=== PATIENT | male | born 1985 | race Two or more races ===

== ENCOUNTER 2022-06-14 09:39 | Outpatient (REF) | payer OTHER, SELFPAY ==
[2022-06-14 11:46] LABS: MANUAL DIFF FLAG NO
[2022-06-14 11:50] LABS: Eosinophils Absolute Auto 0.1 X10*3/uL (0.0-0.4); Eosinophils Percent Auto 1.7 % (0-4); Hematocrit 39.2 % (42.0-52.0); Hemoglobin 12.7 g/dl (14.0-18.0); Imm Gran Abs Auto 0.01 X10*3/uL (0.00-0.03); Imm Gran Pct Auto 0.2 % (0.0-0.4); Lymphocytes Absolute Auto 1.4 X10*3/uL (1.2-4.9); Lymphocytes Percent Auto 33.4 % (20-40); Mean Corpuscular HGB Conc 32.4 g/dl (31.0-36.0); Mean Corpuscular Volume 83.2 fL (80.0-98.0); Mean Platelet Volume 10.6 fL (9.4-12.4); Monocytes Absolute Auto 0.4 X10*3/uL (0.1-1.2); Monocytes Percent Auto 9.4 % (2-11); Neutrophils Absolute Auto 2.2 x10*3/uL (2.0-8.3); Neutrophils Percent Auto 54.3 % (45-73); Platelet Count 180 X10*3/uL (160-400); Red Blood Count 4.71 X10*6/uL (4.60-5.80); Red Cell Distribution Width 13.3 % (11.0-16.0); White Blood Count 4.1 X10*3/uL (4.8-10.8)
[2022-06-14 12:10] LABS: Appearance Urine CLEAR; Color Urine YELLOW; Glucose Urine UA NEG (NEG); Leukocyte Esterase Urine NEG (NEG); Nitrite Urine NEG (NEG); Urine Blood NEG (NEG); Urine Ketones NEG (NEG); Urine Protein NEG (NEG-TRACE)
[2022-06-14 12:16] LABS: Alanine Aminotransferase 15 U/L (0-40); Albumin Level 4.3 g/dL (3.5-5.0); Alkaline Phosphatase 55 U/L (39-117); Anion Gap 10 (12-20); Aspartate Amino Transferase 14 U/L (5-37); Bilirubin Total 0.5 mg/dL (0.0-1.0); Blood Urea Nitrogen 17 mg/dL (9-16); Calcium 8.9 mg/dL (8.4-10.2); Carbon Dioxide 27 mmol/L (22-29); Chloride 104 mmol/L (96-108); Cholesterol 192 mg/dL; Estimated Glomerular Filt Rate > 60; Glucose Fasting 89 mg/dL (60-99); HDL Cholesterol 53 mg/dL; LDL Cholesterol Calculated 131 mg/dl; Potassium 4.1 mmol/L (3.3-5.1); Sodium 137 mmol/L (135-145); Total Protein 6.9 g/dL (6.5-8.0); Triglycerides 41 mg/dL
[2022-06-14 12:22] LABS: TSH reflex Free T4 1.33 uIU/mL (0.32-4.0)
== END 2022-06-14 09:40 | disposition home or self-care (01) ==
LOC: HO.HMGCLDS 09:39
PROVIDERS: PCP Nurse Practitioner Family; Visit Provider Nurse Practitioner Family
DX: Z00.00 Encounter for general adult medical examination without abnormal findings (principal); Z13.220 Encounter for screening for lipoid disorders; Z13.29 Encounter for screening for other suspected endocrine disorder
CPT/HCPCS: 36415; 80053; 80061; 81003; 84443; 85025

== ENCOUNTER 2022-07-25 08:50 | Outpatient (REF) | payer OTHER, SELFPAY ==
[2022-07-25 12:20] LABS: Iron 98 mcg/dL (45-160); Percent Iron Saturation 32 % (15-50); Total Iron Binding Capacity 311 mcg/dL (228-428); Unsaturated Iron Binding 213 ug/dL
[2022-07-25 12:24] LABS: Folate 13.6 ng/mL (> or = 4.0); Vitamin B12 304 pg/mL (200-900)
== END 2022-07-25 08:51 | disposition home or self-care (01) ==
LOC: HO.HMGCLDS 08:50
PROVIDERS: PCP Nurse Practitioner Family; Visit Provider Internal Medicine
DX: D64.9 Anemia, unspecified (principal)
CPT/HCPCS: 36415; 82607; 82746; 83540

== ENCOUNTER 2022-08-15 09:50 | Outpatient (REF) | payer OTHER, SELFPAY ==
--- NOTE | ~2022-08-15 | XR_ITS ---
EXAMINATION: XR CERVICAL SPINE CLINICAL INFORMATION: Cervicalgia COMPARISON: None TECHNIQUE: 3 views of the cervical spine were obtained. FINDINGS: There are no prevertebral soft tissue or bony abnormalities demonstrated. No compression fractures or subluxations are identified. Alignment is maintained at the atlanto-axial articulation. The disc spaces are preserved. No endplate changes are seen. The prevertebral soft tissues are normal. The foramina are patent. XR/XR cervical spine 2V IMPRESSION: Unremarkable examination.
== END 2022-08-15 09:51 | disposition home or self-care (01) ==
LOC: HO.HMGCX 09:50
PROVIDERS: PCP Nurse Practitioner Family; Visit Provider Nurse Practitioner Family
DX: M54.2 Cervicalgia (principal)
CPT/HCPCS: 72040

== ENCOUNTER 2022-11-21 10:00 | Outpatient (RCR) | payer OTHER, SELFPAY ==
--- NOTE | 2022-10-09 14:38 | MHC.PT.EP ---
[facility] [place] [facility] [place] Office [place] Office [address] Jeancarlos Lundy [address] [phone] F: [phone] F: [phone] F: [phone] F: [phone] Physical Therapy Plan of Care Date of Evaluation: Date of Surgery: N/A Diagnosis: cervicalgia Assessment: Pt is a 37yo M who presents to PT with neck pain radiating into L UE since ~. He reports onset of pain started when he began reading as a hobby. Pt presents to PT with current impairments in pain, radicular symptoms, decreased cervical ROM, decreased strength, soft tissue restrictions, and impaired posture. His symptoms centralize with his neck in a neutral position, and he peripheralizes with his neck flexed. He is limited functionally with looking down, looking up, reading, driving and sleeping. He is an excellent candidate for skilled PT in order to address current impairments to facilitate return to PLOF. He is recommended to be seen 2x/week for 4 weeks and will be reassessed at that time. Frequency and Duration: The patient will be seen 2x/week for 4 weeks Short Term Goals: Pt will be I with HEP to promote self management of symptoms Pt will demonstrate improvements in postural awareness throughout the day Pt will have centralization of symptoms Operation Agent Goals: Pt will demonstrate full, pain-free ROM throughout all planes of cervical spine Pt will tolerate sitting and reading > 1 hour with minimal to no symptoms Pt will demonstrate improvements in functional as evidenced by statistically significant improvement in Neck Pain Disability Index Questionnaire Treatment Plan: Modalities to reduce pain, spasms and effusion. Manual therapy to restore motion and function. Therapeutic exercise to improve strength and flexibility. Neuromuscular re-education for posture and balance. Therapeutic activities to return to functional activities of daily living. Electronically signed by: Laurie Felton, PT, DPT Please sign and return to therapist. Thank you for your referral.
--- NOTE | 2022-11-26 14:18 | MHC.PT.DC ---
[facility] [place] Office [place] Office [place] Office [address] Jeancarlos Lundy [address] [phone] F: [phone] F: [phone] F: [phone] F: [phone] Physical Therapy Discharge Report Diagnosis: cervicalgia Date of Surgery: N/A Date of Evaluation: 10/09/22 Date of Discharge: 11/26/22 Treatments to Date: 10 Cancellations to Date: No Shows to Date: Discharge Status: Achieved Goals Improved Function Independent with HEP Discharge Summary: Pt was seen for PT from 10/09/22-11/21/22. His last attended appointment was 11/21/22. He has made good progress since SOC. He demonstrates improvements in postural awareness and his body mechanics. He consistently has minimal to no pain. Pt is I with HEP. Pt is being D/C from skilled PT at this time. Electronically signed by: Laurie Felton, PT, DPT Please sign and return to therapist. Thank you for your referral.
== END 2022-11-26 14:18 | disposition home or self-care (01) ==
LOC: HO.PT 10:00
PROVIDERS: PCP Nurse Practitioner Family; Visit Provider Nurse Practitioner Family
DX: M54.2 Cervicalgia (principal)
CPT/HCPCS: 97110; 97140; 97162

== ENCOUNTER 2022-12-19 09:27 | Outpatient (REF) | payer OTHER, SELFPAY | END 2022-12-19 09:28 | disposition home or self-care (01) | LOC: HO.HMGCLDS 09:27 | PROVIDERS: PCP Nurse Practitioner Family; Visit Provider Nurse Practitioner Family | DX: Z01.83 Encounter for blood typing (principal) | CPT/HCPCS: 86900; 86901 ==

== ENCOUNTER 2023-02-14 08:03 | Outpatient (REF) | payer OTHER, SELFPAY ==
--- NOTE | ~2023-02-14 | MR_ITS ---
EXAMINATION: MR CERVICAL SPINE WITHOUT CONTRAST CLINICAL INFORMATION: Radicular symptoms. The patient states left-sided symptoms. COMPARISON: Plain films of the cervical spine 08/15/2022. TECHNIQUE: MRI of the cervical spine was obtained using routine sequences without contrast. FINDINGS: VERTEBRAL BODIES AND PARASPINAL SOFT TISSUES: There is a mild levoscoliosis. There is a slight retrolisthesis of C4 on C5. There is narrowing of intervertebral disc height at C4-C5, C5-C6 and C6-C7. Vertebral body heights are maintained and no fractures are demonstrated. Marrow signal is homogenous. There is an impacted left mandibular 3rd molar tooth. The right mandible is not included on the wglia-ny-noab, but an impacted 3rd molar on the right was demonstrated on the on the prior study. There are mildly prominent cervical lymph nodes bilaterally which are likely reactive. CERVICOMEDULLARY JUNCTION AND VISUALIZED POSTERIOR FOSSA: The craniocervical and posterior fossa structures are normal. Accounting for artifact, spinal cord signal appears normal. SPINAL LEVELS: C2-C3: The facet joints appear normal bilaterally. Posterior disc contour is normal. There is no spinal cord compression or central stenosis. The neural foramina are patent bilaterally. C3-C4: The facet joints appear normal. Posterior disc contour is normal with no cord compression or central stenosis. There are uncovertebral osteophytes and there is mild right foraminal narrowing. C4-C5: The facet joints appear normal. There is a broad-based posterior soft disc protrusion with mild distortion of the ventral thecal sac, without cord compression or central stenosis. There are uncovertebral osteophytes and there is moderate right foraminal narrowing. C5-C6: The facet joints appear normal. There is a posterior disc protrusion which is eccentrically slightly more prominent on the left, but there is no cord compression or central stenosis. There are uncovertebral osteophytes and there is mild left foraminal narrowing. C6-C7: The facet joints appear normal bilaterally. There is a large extruded disc component on the left which has a craniocaudal dimension of 0.8 cm, which significantly compresses the left aspect of the thecal sac and flattens the ventral aspect of the spinal cord on the left. There is posterior displacement of the traversing left C8 nerve root. There is effacement of CSF around the cord, and there is mild central stenosis, most prominent on the left. The protrusion/extrusion causes mild left foraminal narrowing. The right neural foramen is patent. C7-T1: The facet joints appear normal bilaterally. Posterior disc contour is normal. There is no spinal cord compression or central stenosis. The neural foramina are patent bilaterally. MR/MR cervical spine wo con IMPRESSION: 1. There is a large extruded disc component on the left at C6-C7 with compression of the left aspect of the thecal sac and flattening of the ventral aspect of the spinal cord on the left. There is posterior displacement of the traversing left C8 nerve root and there is mild central stenosis. There is mild left foraminal narrowing. 2. At C4-C5 there is a broad-based posterior soft disc protrusion without cord compression or central stenosis. There is moderate right foraminal narrowing. 3. At C5-C6 there is a posterior disc protrusion without cord compression or central stenosis. There is mild left foraminal narrowing.
== END 2023-02-14 08:04 | disposition home or self-care (01) ==
LOC: HO.MRI 08:03
PROVIDERS: PCP Nurse Practitioner Family; Visit Provider Nurse Practitioner Family
DX: M54.2 Cervicalgia (principal)
CPT/HCPCS: 72141

== ENCOUNTER → 2023-03-06 09:26 | Outpatient (BNVA) | payer OTHER, SELFPAY | PROVIDERS: PCP Nurse Practitioner Family; Visit Provider Physician Assistant | DX: Z13.89 Encounter for screening for other disorder (principal) ==

== ENCOUNTER 2023-08-21 08:39 | Outpatient (AMB) | payer OTHER, SELFPAY ==
[2023-08-21 08:52] VITALS: BP 122/80; PULSE 66; O2SAT 100; BMI 19.3
--- NOTE | 2023-08-21 08:52 | MHC.PC.OV ---
Vital Signs 08/21/23 08:52 Height 5 ft 1 in Weight 102 lb 6 oz BMI 19.3 BP 122/80 Blood Pressure Location Rt brachial Position Sitting Pulse 66 Pulse Source Pulse Oximeter Pulse Oximetry (%) 100 Oxygen Delivery Method Room Air Intake Visit Reasons: PE Allergies No Known Allergies Allergy (Verified 08/21/23 09:02) Medication List - Last Reconciled 08/21/23 by CHRISTINE Larose No Known Home Meds Tobacco use date assessed: 08/21/23 Dental Screening Dental Screen Date: 08/21/23 Did you have a dental visit in the last 12 months?: No Did you have a dental problem in the last 6 months where you did not have access to dental care?: No Was dental information given to patient?: Patient has dentist HPI PE HPI Details pt is here for a PE. PFSH Family History Paternal Uncle No problems noted. 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 Piotr Gandhi, Faviola Newman, Yann Salvador and colleagues, with an educational gregory from [employer] Review of Systems Const Denies chills and Denies fever(s) Eyes Denies blurry vision ENT Denies vertigo, Denies dizziness and Denies sore throat Card Denies chest pain at rest, Denies chest pain with activity, Denies diaphoresis, Denies dyspnea and Denies dyspnea on exertion Resp Denies cough, Denies dyspnea, Denies dyspnea on exertion and Denies wheezing GI Denies abdominal pain, Denies melena, Denies hematochezia, Denies constipation, Denies diarrhea and Denies loose stools Denies hematuria Musc Denies numbness and Denies tingling Skin/Breast Denies lesions Neuro Denies vertigo, Denies dizziness, Denies numbness and Denies tingling Psych Denies anxiety, Denies depression, Denies homicidal ideation, Denies suicidal ideation and Denies other (substance abuse) Aller/Immun Denies wheezing Physical exam (Primary Care) Vital Signs: Last Vital Signs Pulse 66 08/21/23 08:52 BP 122/80 08/21/23 08:52 Pulse Ox 100 08/21/23 08:52 Oxygen Delivery Method Room Air 08/21/23 08:52 BMI result Body Mass Index 19.3 Tobacco/Smoking Status: Tobacco use Status Tobacco use date assessed 08/21/23 08/21/23 08:56 Patient Tobacco Use Status Never used Tobacco 08/21/23 08:56 e-Cigarette/Vaping Use Never Used 08/21/23 08:56 Thrive Assessment: Date of Thrive Assessment Date Thrive assessed 04/11/22 08/21/23 08:56 Const General: cooperative Nutritional Appearance: well nourished Orientation/consciousness: patient oriented x3 HENMT Head: Yes normal to inspection, Yes normocephalic and Yes atraumatic Ears: TM normal on the right and TM normal on the left Eyes General: appearance normal, both eyes and all related structures Alignment and Position: alignment normal and position normal Neck Neck: Yes normal visual inspection and Yes no lymphadenopathy Resp Effort & Inspection: normal respiratory effort Auscultation: clear to auscultation bilaterally Cardio Rate: regular rate Rhythm: regular rhythm Heart sounds: S1 normal heart sound present, S2 normal heart sound present and no murmurs GI Palpation (GI): Soft to palpation and nontender Auscultation: normal bowel sounds Male General Exam: Yes normal external exam Penis: normal penis Scrotum: scrotum normal, testes descended bilaterally and no inguinal hernias Testes: no testicular mass Skin Rashes: no rashes Neuro General: patient oriented x3, moves all extremities, no focal motor deficits and deep tendon reflexes 2+ bilaterally Romberg Test: Negative Extrem Right lower extremity: no edema Left lower extremity: no edema Psych Affect: normal affect Attitude: cooperative Thought process: Normal thought process present Assessment and Plan Assessment & Plan (1) Physical exam: Code(s): Z00.00 - Encounter for general adult medical examination without abnormal findings Orders: Orders Complete Blood Count Auto Diff Today Z00.00 - Encounter for general adult medical examination without abnormal findings Comprehensive [place]. Panel Fast Today Z00.00 - Encounter for general adult medical examination without abnormal findings Lipid Panel Today Z00.00 - Encounter for general adult medical examination without abnormal findings TSH reflex Free T4 Today Z00.00 - Encounter for general adult medical examination without abnormal findings UA CC w/rflx Micro + Cult Today Z00.00 - Encounter for general adult medical examination without abnormal findings Coding Level of Care Code Est Pt Prev Care 40-64y(74015) Diagnoses Physical exam Z00.00
== END 2023-08-21 09:10 | disposition home or self-care (01) ==
PROVIDERS: Visit Provider Nurse Practitioner Family
DX: Z00.00 Encounter for general adult medical examination without abnormal findings (principal)
CPT/HCPCS: 99396

== ENCOUNTER 2023-08-27 08:45 | Outpatient (REF) | payer OTHER, SELFPAY ==
[2023-08-27 11:21] LABS: MANUAL DIFF FLAG NO
[2023-08-27 11:26] LABS: Appearance Urine Clear; Color Urine Yellow; Glucose Urine UA Negative (Negative); Leukocyte Esterase Urine Negative (Negative); Nitrite Urine Negative (Negative); PH 5.5 (5.0-9.0); Specific Gravity - Urine 1.025 (1.005-1.025); Urine Blood Negative (Negative); Urine Ketones Negative (Negative); Urine Protein Negative (Neg-Trace)
[2023-08-27 11:37] LABS: Basophils Absolute Auto 0.1 X10*3/uL (0.0-0.2); Basophils Percent Auto 1.2 % (0-2); Eosinophils Absolute Auto 0.2 X10*3/uL (0.0-0.4); Eosinophils Percent Auto 4.3 % (0-4); Hematocrit 38.8 % (42.0-52.0); Hemoglobin 12.4 g/dl (14.0-18.0); Imm Gran Abs Auto 0.01 X10*3/uL (0.00-0.03); Imm Gran Pct Auto 0.2 % (0.0-0.4); Lymphocytes Absolute Auto 1.6 X10*3/uL (1.2-4.9); Lymphocytes Percent Auto 38.3 % (20-40); Mean Corpuscular Volume 84.3 fL (80.0-98.0); Mean Platelet Volume 10.7 fL (9.4-12.4); Monocytes Absolute Auto 0.4 X10*3/uL (0.1-1.2); Monocytes Percent Auto 10.3 % (2-11); Neutrophils Absolute Auto 1.9 x10*3/uL (2.0-8.3); Neutrophils Percent Auto 45.7 % (45-73); Platelet Count 183 X10*3/uL (160-400); Red Cell Distribution Width 13.3 % (11.0-16.0); White Blood Count 4.2 X10*3/uL (4.8-10.8)
[2023-08-27 11:57] LABS: Alanine Aminotransferase 11 U/L (0-40); Albumin Level 4.2 g/dL (3.5-5.0); Alkaline Phosphatase 49 U/L (39-117); Anion Gap 11 (12-20); Aspartate Amino Transferase 12 U/L (5-37); Bilirubin Total 0.5 mg/dL (0.0-1.0); Blood Urea Nitrogen 15 mg/dL (9-16); Calcium 9.1 mg/dL (8.4-10.2); Carbon Dioxide 28 mmol/L (22-29); Chloride 106 mmol/L (96-108); Cholesterol 173 mg/dL (<200); Estimated Glomerular Filt Rate > 60; Glucose Fasting 91 mg/dL (60-99); HDL Cholesterol 56 mg/dL (>40); LDL Cholesterol Calculated 108 mg/dL (<100); Potassium 4.3 mmol/L (3.3-5.1); Sodium 141 mmol/L (135-145); Total Protein 6.8 g/dL (6.5-8.0); Triglycerides 46 mg/dL (<150)
[2023-08-27 12:14] LABS: TSH reflex Free T4 1.18 uIU/mL (0.32-4.0)
== END 2023-08-27 08:46 | disposition home or self-care (01) ==
LOC: HO.HMGCLDS 08:45
PROVIDERS: PCP Nurse Practitioner Family; Visit Provider Nurse Practitioner Family
DX: Z00.00 Encounter for general adult medical examination without abnormal findings (principal); D64.9 Anemia, unspecified; Z13.220 Encounter for screening for lipoid disorders; Z13.29 Encounter for screening for other suspected endocrine disorder
CPT/HCPCS: 36415; 80053; 80061; 81003; 84443; 85025

== ENCOUNTER 2023-10-22 12:20 | Outpatient (REF) | payer OTHER, SELFPAY ==
[2023-10-22 13:42] LABS: Immature Retic Fraction 8.9 % (2.3-13.4); Retic HGB Equivalent 31.7 pg (30.0-35.0); Reticulocytes Absolute 0.053 X10*6/uL (0.026-0.095)
[2023-10-22 14:11] LABS: Iron 71 mcg/dL (45-160); Percent Iron Saturation 29 % (15-50); Total Iron Binding Capacity 242 mcg/dL (228-428); Unsaturated Iron Binding 171 ug/dL
[2023-10-22 14:15] LABS: Ferritin 226 ng/mL (20-250)
[2023-10-22 14:41] LABS: Folate 10.3 ng/mL (> or = 4.0); Vitamin B12 541 pg/mL (200-900)
[2023-10-23 14:59] LABS: Hemoglobin 14.1 g/dL (13.2-17.1); MCH 26.7 pg (27.0-33.0); MCV 81.4 fL (80.0-100.0); RBC 5.28 Million/uL (4.20-5.80); RDW 12.9 % (11.0-15.0)
== END 2023-10-22 12:21 | disposition home or self-care (01) ==
LOC: HO.HMGCLDS 12:20
PROVIDERS: PCP Nurse Practitioner Family; Visit Provider Nurse Practitioner Family
DX: D64.9 Anemia, unspecified (principal); D72.819 Decreased white blood cell count, unspecified
CPT/HCPCS: 36415; 82607; 82728; 82746; 83020; 83540; 85014; 85018; 85041; 85045

== ENCOUNTER 2024-01-08 11:31 | Outpatient (REF) | payer OTHER, SELFPAY ==
[2024-01-08 13:02] LABS: MANUAL DIFF FLAG NO
[2024-01-08 13:24] LABS: Basophils Percent Auto 0.6 % (0-2); Eosinophils Percent Auto 0.8 % (0-4); Hematocrit 41.3 % (42.0-52.0); Hemoglobin 13.2 g/dl (14.0-18.0); Lymphocytes Absolute Auto 1.3 X10*3/uL (1.2-4.9); Lymphocytes Percent Auto 27.1 % (20-40); Mean Corpuscular Hemoglobin 26.7 pg (27.0-33.0); Mean Corpuscular Volume 83.4 fL (80.0-98.0); Mean Platelet Volume 10.7 fL (9.4-12.4); Monocytes Absolute Auto 0.5 X10*3/uL (0.1-1.2); Neutrophils Absolute Auto 2.9 x10*3/uL (2.0-8.3); Neutrophils Percent Auto 60.5 % (45-73); Platelet Count 192 X10*3/uL (160-400); Red Blood Count 4.95 X10*6/uL (4.60-5.80); Red Cell Distribution Width 13.2 % (11.0-16.0); White Blood Count 4.7 X10*3/uL (4.8-10.8)
== END 2024-01-08 11:32 | disposition home or self-care (01) ==
LOC: HO.HMGCLDS 11:31
PROVIDERS: PCP Nurse Practitioner Family; Visit Provider Nurse Practitioner Family
DX: D72.819 Decreased white blood cell count, unspecified (principal)
CPT/HCPCS: 36415; 85025

== ENCOUNTER 2024-01-12 10:11 | Outpatient (AMB) | payer OTHER, SELFPAY ==
--- NOTE | 2024-01-12 12:37 | AM.OFFWIN_ITS ---
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 He felt a sharp pull or pain in his mid upper back region. No direct trauma. He was able to go on about his day and continue working however when he woke up the next day he was much more sore and complains of pain from the mid back that radiates to the left arm. Occasional pins and needles sensation in his hand. No weakness of his hand. He was seen in an urgent care and prescribed Flexeril though only given 3 tablets and recommended to use Advil which he has been doing. He has had minimal relief with the symptoms. 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 [facility] Family History Paternal Uncle No problems noted. 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[employer] Current occupational exposures/hazards: Yes Cognitive needs: No Hearing needs: No Vision needs: No Review of Systems Eyes Reports no additional complaints ENT Denies dysphagia Card Reports no additional complaints, Denies dyspnea and Denies dyspnea on exertion Resp Denies cough, Denies hemoptysis, Denies dyspnea and Denies dyspnea on exertion GI Denies dysphagia Denies difficulty urinating and Denies urinary incontinence Musc Reports back pain and Denies muscle weakness Physical Exam Vital Signs: Last Vital Signs Pulse 70 01/12/24 12:39 BP 118/78 01/12/24 12:39 Pulse Ox 98 01/12/24 12:39 Oxygen Delivery Method Room Air 01/12/24 12:39 BMI result Body Mass Index 19.3 Const General: healthy appearing and no acute distress Orientation/consciousness: patient oriented x3 Eyes General: appearance normal, both eyes and all related structures Pupils: Equal, round and reactive pupils present Resp Effort & Inspection: normal respiratory effort and able to speak in complete sentences Back/Spine/Pelvis Other: Tender palpation in the mid upper thoracic region around the level of the middle of the scapula on the left and left paraspinal musculature approximately T5 region. No soft tissue swelling no bony deformity no midline tenderness. Full range of motion of the left upper extremity. No tenderness along the scapula. Thoracic/Lumbar Spine: thoracic and lumbar spine normal to inspection Neuro General: patient oriented x3 and Normal light touch and pain sensation Cranial nerves: Yes Equal, round and reactive pupils present Assessment & Plan Assessment & Plan (1) Muscle spasm: Code(s): M62.838 - Other muscle spasm Plan Symptoms consistent with muscle spasm/strain. Will recommend continued muscle relaxer +NSAIDs. Recommend follow-up in 1 week. Discussed with patient no indication for radiographs. Work note given Medications: New cyclobenzaprine 10 mg PO TID PRN 12 tabs 0RF muscle spasm Coding Level of Care Code Est Pt Level 3 (58650) Diagnoses Muscle spasm M62.838
[2024-01-12 12:39] VITALS: BP 118/78; PULSE 70; O2SAT 98; BMI 19.3
== END 2024-01-12 14:16 | disposition home or self-care (01) ==
PROVIDERS: PCP Nurse Practitioner Family; Visit Provider Emergency Medicine
DX: M62.838 Other muscle spasm (principal)
CPT/HCPCS: 99213

== ENCOUNTER 2024-01-13 08:02 | Outpatient (AMB) | payer OTHER, SELFPAY ==
[2024-01-13 08:07] VITALS: BP 120/72; PULSE 102; O2SAT 98; BMI 19.3
--- NOTE | 2024-01-13 08:11 | MHC.PC.OV ---
Vital Signs 01/13/24 08:07 Height 5 ft 1 in Weight 102 lb BMI 19.3 BP 120/72 Blood Pressure Location Lt brachial Position Sitting Pulse 102 H Pulse Source Pulse Oximeter Pulse Oximetry (%) 98 Intake Visit Reasons: WC Back Injury Intake Note: pt is here back injury, was seen in walk in yesterday and possibly need referral or surgery due to back pain Allergies No Known Allergies Allergy (Verified 01/13/24 08:34) Medication List - Last Reconciled 01/13/24 by CHRISTINE Larose cyclobenzaprine 10 mg PO TID PRN prednisone 50 mg PO DAILY 6 days Tobacco use date assessed: 01/13/24 Dental Screening Dental Screen Date: 01/13/24 Did you have a dental visit in the last 12 months?: Yes Did you have a dental problem in the last 6 months where you did not have access to dental care?: No Was dental information given to patient?: Patient has dentist HPI WC Back Injury HPI Details Pt was seen in the walk-in on 01/12 c/o mid thoracic back pain. 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 Pt's symptoms were consistent with muscle spasm/strain. He was given cyclobenzaprine. Pt reports ongoing pain that has been radiating to his cervical neck (site of ongoing pain). He has seen neurosurgery in the past, hx of C6-C7 herniated disc. Pt was a good candidate for disc replacement. Pt reports pain with weakness/numbness to his LUE and left scapula/trap with turning head side to side, chin raises, and chin tucks. Will send prednisone. Will have pt call the spine center to be seen again for possible surgical intervention, seeing his symptoms are much worse. Denies fever, chills, and dizziness. [facility] Family History Paternal Uncle No problems noted. Maternal Uncle Substance use disorder Social History Housing: House Patient Tobacco Use Status: Never used Tobacco e-Cigarette/Vaping Use: Never Used Second Hand Smoke Exposure: No service: No Current occupational status: employed Current occupation: [employer] with [employer] Current occupational exposures/hazards: Yes Cognitive needs: No Hearing needs: No Vision needs: No Questionnaire Thrive Questionnaire Date Thrive assessed: 04/11/22 RUBY-7 AMB Questionnaire RUBY-7 Date RUBY - 7 assessed: 04/11/22 Source: Developed by Drs. Piotr Gandhi, Faviola Newman, Yann Salvador and colleagues, with an educational gregory from [employer]. Review of Systems Const Reports as per HPI Physical exam (Primary Care) Vital Signs: Last Vital Signs Pulse 102 H 01/13/24 08:07 BP 120/72 01/13/24 08:07 Pulse Ox 98 01/13/24 08:07 BMI result Body Mass Index 19.3 Tobacco/Smoking Status: Tobacco use Status Tobacco use date assessed 01/13/24 01/13/24 08:13 Patient Tobacco Use Status Never used Tobacco 01/13/24 08:13 e-Cigarette/Vaping Use Never Used 01/13/24 08:13 Thrive Assessment: Date of Thrive Assessment Date Thrive assessed 04/11/22 01/13/24 08:13 Const General: cooperative Orientation/consciousness: patient oriented x3 Resp Effort & Inspection: normal respiratory effort Auscultation: clear to auscultation bilaterally Cardio Rate: regular rate Rhythm: regular rhythm Heart sounds: S1 normal heart sound present and S2 normal heart sound present Back/Spine/Pelvis Other: + spurlings bilat, cervical neck pain with radicular symptoms exacerbated with chin tucks, chin raises, and turning head side to side Neuro General: patient oriented x3 Psych Appearance: grossly normal Mental Status: mental status grossly normal Speech and movement: Normal speech and movement present Affect: normal affect Attitude: cooperative Thought process: Normal thought process present Thought content: Normal thought content present Insight: Good insight present (Psych) Judgement: Good judgement present (Psych) Assessment and Plan Assessment & Plan (1) Cervical disc herniation: Code(s): M50.20 - Other cervical disc displacement, unspecified cervical region (2) Cervical radiculopathy: Code(s): M54.12 - Radiculopathy, cervical region Plan The patient agreed to the use of a medical delivery technician for this encounter. Scribed for CHRISTINE Clayton by aravind Raman scribe, on 01/13/2024 at 08:20 EST. Medications: New prednisone 50 mg PO DAILY 6 tabs 0RF 6 days Coding Level of Care Code Est Pt Level 3 (66579) Diagnoses Cervical disc herniation M50.20 Cervical radiculopathy M54.12
== END 2024-01-13 08:38 | disposition home or self-care (01) ==
PROVIDERS: PCP Nurse Practitioner Family; Visit Provider Nurse Practitioner Family
DX: M50.20 Other cervical disc displacement, unspecified cervical region (principal); M54.12 Radiculopathy, cervical region
CPT/HCPCS: 99213

== ENCOUNTER 2024-03-16 15:01 | Outpatient (REF) | payer OTHER, SELFPAY ==
--- NOTE | ~2024-03-16 | MR_ITS ---
EXAMINATION: MR CERVICAL SPINE WITHOUT CONTRAST CLINICAL INFORMATION: Cervical disc displacement, cervicalgia. COMPARISON: MRI cervical spine 02/14/2023. TECHNIQUE: MRI of the cervical spine was obtained using routine sequences without contrast. FINDINGS: The normal cervical lordosis is preserved. Mild levocurvature of the cervical spine. Trace retrolisthesis of C4-C5. Cervical vertebral body heights are maintained. No expansile or destructive osseous lesion. The cervical spinal cord is normal in signal. C2-C3: No significant spinal canal or neural foraminal stenosis. C3-C4: No significant spinal canal stenosis. Asymmetric right-sided uncovertebral arthropathy with trace disc protrusion. Associated minimal narrowing of the right neural foramen appears stable. C4-C5: Disc-osteophyte complex with trace central disc protrusion. The spinal canal is not significantly narrowed. Asymmetric right-sided uncovertebral arthropathy with [id number] right neural foraminal stenosis that appears slightly increased compared to prior. The left neural foramen is patent. C5-C6: Disc-osteophyte complex indents the ventral thecal sac without significant spinal canal stenosis. Uncovertebral spurring with mild narrowing of the left neural foramen. C6-C7: Disc-osteophyte complex with large left subarticular disc extrusion appears [id number] decreased when compared to the prior examination. Asymmetric effacement of the left ventral thecal sac with compression of the traversing left C8 nerve root is again noted. There is moderate left neural foraminal stenosis. Mild narrowing of the right neural foramen. C7-T1: No significant spinal canal or neural foraminal stenosis. MR/MR cervical spine wo con IMPRESSION: Redemonstrated large left subarticular disc extrusion at C6-C7 with asymmetric effacement of the left ventral thecal sac and mass effect on the traversing left C8 nerve root. Associated moderate left neural foraminal stenosis which appears comparable to the prior examination. [place]-[id number] right neural foraminal stenosis at C4-C5 appears mildly progressed compared to prior.
== END 2024-03-16 15:02 | disposition home or self-care (01) ==
LOC: HO.MRI 15:01
PROVIDERS: PCP Nurse Practitioner Family; Visit Provider Nurse Practitioner Family
DX: M50.20 Other cervical disc displacement, unspecified cervical region (principal); M48.02 Spinal stenosis, cervical region; M54.12 Radiculopathy, cervical region
CPT/HCPCS: 72141

== ENCOUNTER 2024-09-09 10:23 | Outpatient (AMB) | payer OTHER, SELFPAY ==
[2024-09-09 10:24] VITALS: BP 104/64; PULSE 62; O2SAT 99; BMI 19.3
--- NOTE | 2024-09-09 10:24 | A.OFFPC_ITS ---
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 Will order labs. Pt follows up with [facility]. Pt c/o swelling and tenderness of his left testicle. He reports that this is worse when he is active. Will order US. [facility] Surgical History No pertinent past surgical history Family History Paternal Uncle No problems noted. Maternal Uncle Substance use disorder Social History Housing: House Patient Tobacco Use Status: Never used Tobacco e-Cigarette/Vaping Use: Never Used Second Hand Smoke Exposure: No service: No Current occupational status: employed Current occupation: [employer] with [employer] Current occupational exposures/hazards: Yes Cognitive needs: No Hearing needs: No Vision needs: No Questionnaire PHQ-9 Over the last 2 weeks, how often have you been bothered by any of the following problems? 1. Little interest or pleasure in doing things: not at all 2. Feeling down, depressed, or hopeless: several days 3. Trouble falling or staying asleep, or sleeping too much: not at all 4. Feeling tired or having little energy: several days 5. Poor appetite or overeating: not at all 6. Feeling bad about yourself - or that you are a failure or have let yourself or your family down: several days 7. Trouble concentrating on things, such as reading the newspaper or watching television: several days 8. Moving or speaking so slowly that other people could have noticed. Or the o pposite - being so fidgety or restless that you have been moving around a lot more than usual: not at all 9. Thoughts that you would be better off or of hurting yourself in some way: not at all Total score: 4 Depression Screening Interpretation: Negative Depression Screening Done: Yes 99495 - PHQ-9 Billing: Yes Source: Developed by Drs. Piotr Gandhi, Faviola Newman, Yann Salvador and colleagues, with an educational gregory from [employer]. Thrive Questionnaire Date Thrive assessed: 09/09/24 I am a: Patient What is your living situation today?: I have a steady place to live Within the past 12 months, did the food you bought not last and you didn't have the money to get more?: Never true Within the past 12 months, did you worry whether your food would run out before you got money to buy more?: Never true Do you have trouble paying for medicines?: No Do you have trouble getting transportation to medical appointments?: No Do you have trouble paying your heating and electricity bill?: No Do you have trouble taking care of your child, family member or friend?: No Do you have trouble with day-to-day activities such as bathing, preparing meals, shopping, managing finances, etc.?: No Are you currently unemployed and looking for a job?: No Are you interested in more education?: No Please select the resources that you would like help with: None Currently or been in a relationship where the following occur: No concerns reported THRIVE Score: 0 AUDIT C Alcohol Use Questionnaire (AUDIT-C) 1. How often do you have a drink containing alcohol?: Never 3. How often do you have six or more drinks on one occasion?: Never Total Score: 0 Score Reviewed/Action Taken: Yes RUBY-7 AMB Questionnaire RUBY-7 Date RUBY - 7 assessed: 09/09/24 Feeling nervous, anxious, or on edge: 1 = Several days Not being able to stop or control worryin = Several days Worrying too much about different things: 1 = Several days Trouble relaxin = Several days Being so restless that it is hard to sit still: 1 = Several days Becoming easily annoyed or irritable: 1 = Several days Feeling afraid as if something awful might happen: 0 = Not at all Total RUBY-7 score (0-4 normal; 5-9 mild; 10-14 moderate; 15-21 severe): 6 Source: Developed by Drs. Piotr Gandhi, Faviola Newman, Yann Salvador and colleagues, with an educational gregory from [employer]. RUBY-7 Assessment Billing RUBY-7 Assessment Tool: RUBY-7 Assessment 09806 Review of Systems Const Denies chills and Denies fever(s) Eyes Denies blurry vision ENT Denies vertigo, Denies dizziness and Denies sore throat Card Denies chest pain at rest, Denies chest pain with activity, Denies diaphoresis, Denies dyspnea and Denies dyspnea on exertion Resp Denies cough, Denies dyspnea, Denies dyspnea on exertion and Denies wheezing GI Denies abdominal pain, Denies melena, Denies hematochezia, Denies constipation, Denies diarrhea and Denies loose stools Denies hematuria Musc Denies numbness and Denies tingling Skin/Breast Denies lesions Neuro Denies vertigo, Denies dizziness, Denies numbness and Denies tingling Psych Denies anxiety, Denies depression, Denies homicidal ideation, Denies suicidal ideation and Denies other (substance abuse) Aller/Immun Denies wheezing Physical exam (Primary Care) Vital Signs: Last Vital Signs Pulse 62 09/09/24 10:24 BP 104/64 09/09/24 10:24 Pulse Ox 99 09/09/24 10:24 Oxygen Delivery Method Room Air 09/09/24 10:24 BMI result Body Mass Index 19.3 Tobacco/Smoking Status: Tobacco use Status Tobacco use date assessed 01/13/24 09/09/24 10:27 Patient Tobacco Use Status Never used Tobacco 09/09/24 10:27 e-Cigarette/Vaping Use Never Used 09/09/24 10:27 PHQ-9: PHQ-9 Score PHQ-9: Total score 4 09/09/24 10:27 Depression Screening Interpretation: Negative Thrive Assessment: Date of Thrive Assessment Date Thrive assessed 09/09/24 09/09/24 10:27 Currently or been in a relationship where the following occur: No concerns reported Const General: cooperative Nutritional Appearance: well nourished Orientation/consciousness: patient oriented x3 HENMT Head: Yes normal to inspection, Yes normocephalic and Yes atraumatic Ears: TM's normal bilaterally Eyes General: appearance normal, both eyes and all related structures Alignment and Position: alignment normal and position normal Neck Neck: Yes normal visual inspection, Yes no lymphadenopathy and Yes supple Resp Effort & Inspection: normal respiratory effort Auscultation: clear to auscultation bilaterally Cardio Rate: regular rate Rhythm: regular rhythm Heart sounds: S1 normal heart sound present, S2 normal heart sound present and no murmurs GI Palpation (GI): Soft to palpation and nontender Auscultation: normal bowel sounds Male General Exam: Yes normal external exam Penis: normal penis Scrotum: scrotum normal, testes descended bilaterally and no inguinal hernias Testes: no testicular mass Skin Rashes: no rashes Neuro General: patient oriented x3, moves all extremities, no focal motor deficits and deep tendon reflexes 2+ bilaterally Romberg Test: Negative Psych Appearance: grossly normal Mental Status: mental status grossly normal Speech and movement: Normal speech and movement present Affect: normal affect Attitude: cooperative Thought process: Normal thought process present Thought content: Normal thought content present Insight: Good insight present (Psych) Judgement: Good judgement present (Psych) Coding Level of Care Code Est Pt Prev Care 40-64y(06579) Diagnoses Physical exam Z00.00 Testicular swelling, left N50.89 Testicle tenderness N50.819 Additional Codes RUBY-7 Assessment Billing - RUBY-7 Assessment Tool: RUBY-7 Assessment 39151 ([id number]) Assessment & Plan Assessment & Plan (1) Physical exam: Code(s): Z00.00 - Encounter for general adult medical examination without abnormal findings Category: Medical Plan: Labs ordered (2) Testicular swelling, left: Code(s): N50.89 - Other specified disorders of the male genital organs Category: Medical Plan: US ordered (3) Testicle tenderness: Code(s): N50.819 - Testicular pain, unspecified Category: Medical Plan: US ordered Plan The patient agreed to the use of a biomedical equipment support specialist for this encounter. Scribed for CHRISTINE Clayton by aravind Raman scribe, on 09/09/2024 at 10:35 EST. Orders: Orders Complete Blood Count Auto Diff Today Z00.00 - Encounter for general adult medical examination without abnormal findings Comprehensive [place]. Panel Fast Today Z00.00 - Encounter for general adult medical examination without abnormal findings Lipid Panel Today Z00.00 - Encounter for general adult medical examination without abnormal findings TSH reflex Free T4 Today Z00.00 - Encounter for general adult medical examination without abnormal findings UA CC w/rflx Micro + Cult Today Z00.00 - Encounter for general adult medical examination without abnormal findings US scrotum Today N50.819 - Testicular pain, unspecified, N50.89 - Other specified disorders of the male genital organs
== END 2024-09-09 10:49 | disposition home or self-care (01) ==
PROVIDERS: PCP Nurse Practitioner Family; Visit Provider Nurse Practitioner Family
DX: Z00.00 Encounter for general adult medical examination without abnormal findings (principal); N50.89 Other specified disorders of the male genital organs; N50.819 Testicular pain, unspecified

== ENCOUNTER → 2024-09-09 10:23 | Outpatient (BNVA) | payer OTHER, SELFPAY | PROVIDERS: PCP Nurse Practitioner Family; Visit Provider Nurse Practitioner Family | DX: Z00.01 Encounter for general adult medical examination with abnormal findings (principal); N50.89 Other specified disorders of the male genital organs; N50.819 Testicular pain, unspecified | CPT/HCPCS: 96127 ==

== ENCOUNTER 2024-09-21 16:05 | Outpatient (REF) | payer OTHER, SELFPAY ==
--- NOTE | ~2024-09-21 | US_ITS ---
EXAMINATION: US SCROTUM CLINICAL INFORMATION: Mass, lump, status post vasectomy. COMPARISON: None available. TECHNIQUE: A sonogram of the scrotum was performed assessing dockery-scale appearance and color Doppler flow. Spectral Doppler analysis of the arterial and venous flow were performed in the testes bilaterally. FINDINGS: RIGHT: Right testicle measures 3.7 x 2.0 x 2.5 cm, volume 9.5 mL. No focal testicular parenchymal lesions are visualized. Spectral Doppler analysis of the arterial and venous flow is normal in the right testis. Right epididymis is prominent and diffusely heterogeneous. A 0.6 x 0.5 x 0.5 cm cyst in the right epididymal tail. No right hydrocele or varicocele is seen. Right epididymal Doppler flow is normal. LEFT: Left testicle measures 3.3 x 1.9 x 2.4 cm, volume 7.7 mL. No focal testicular parenchymal lesions are visualized. Spectral Doppler analysis of the arterial and venous flow is normal in the left testis. Left epididymis is prominent and diffusely heterogeneous. No left hydrocele or varicocele is seen. Left epididymal Doppler flow is normal. US/US scrotum IMPRESSION: 1. Bilateral epididymides are diffusely heterogeneous and prominent. 2. A 0.6 cm cyst in the right epididymal tail. 3. Urology consultation recommended to determine further management. This study was presented today September 22, 2024 for interpretation. Stat results provided at this time as requested by referring provider. Electronically signed by: Alondra Floyd MD 09/22/2024 06:45 AM EDT
== END 2024-09-21 16:06 | disposition home or self-care (01) ==
LOC: HO.US 16:05
PROVIDERS: PCP Nurse Practitioner Family; Visit Provider Nurse Practitioner Family
DX: N50.819 Testicular pain, unspecified (principal); N50.89 Other specified disorders of the male genital organs
CPT/HCPCS: 76870

== ENCOUNTER 2024-11-18 09:34 | Outpatient (AMB) | payer OTHER, SELFPAY ==
--- NOTE | 2024-11-18 09:38 | MHC.OFFVIS ---
Intake Visit Reasons: epididymitis/testicular swelling Intake Note: New patient is present to establish care for epidymitis/testicular swelling Any Urology Medications: None Antibiotic Allergy: None Blood Thinner: None Family History: Bladder Cancer? No Prostate Cancer? 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 Maternal Uncle Substance use disorder Social History Housing: House Patient Tobacco Use Status: Never used Tobacco e-Cigarette/Vaping Use: Never Used Second Hand Smoke Exposure: No service: No Current occupational status: employed Current occupation: [employer] with [employer] Current occupational exposures/hazards: Yes Cognitive needs: No Hearing needs: No Vision needs: No Results AMB Urinalysis, Automated UA Leukoctes 0 Burak/uL Last Edit by Ambika Dueñas CMA on 11/18/24 09:59 UA Nitrite Negative Last Edit by Ambika Dueñas CMA on 11/18/24 09:59 UA Urobilinogen 0.2 mg/dL Last Edit by Ambika Dueñas CMA on 11/18/24 09:59 UA Protein 0 mg/dL Last Edit by Ambika Dueñas CMA on 11/18/24 09:59 UA pH 6.0 Last Edit by Ambika Dueñas CMA on 11/18/24 09:59 UA Blood 10 Evelio/uL Last Edit by Ambika Dueñas CMA on 11/18/24 09:59 UA Specific [place] 1.030 Last Edit by Ambika Dueñas CMA on 11/18/24 09:59 UA Ketone Negative Last Edit by Ambika Dueñas CMA on 11/18/24 09:59 UA Bilirubin 0 mg/dL Last Edit by Ambika Dueñas CMA on 11/18/24 09:59 UA Glucose 0 mg/dL Last Edit by Ambika Dueñas CMA on 11/18/24 09:59 Results Reviewed Results Reviewed: Laboratory Last Values Urine pH (Auto) 6.0 11/18/24 09:45 Specific [place] (Auto) 1.030 11/18/24 09:45 Urine Protein (Auto) 0 mg/dL 11/18/24 09:45 Glucose (UA)(Auto) 0 mg/dL 11/18/24 09:45 Urine Ketones (Auto) Negative 11/18/24 09:45 Urine Blood (Auto) 10 Evelio/uL 11/18/24 09:45 Urine Nitrite (Auto) Negative 11/18/24 09:45 Urine Bilirubin (Auto) 0 mg/dL 11/18/24 09:45 Urine Urobilinogen (Auto) 0.2 mg/dL 11/18/24 09:45 Leukocyte Esterase (Auto) 0 Burak/uL 11/18/24 09:45 Date of Service: 09/21/24 US SCROTUM CLINICAL INFORMATION: Mass, lump, status post vasectomy. COMPARISON: None available. TECHNIQUE: A sonogram of the scrotum was performed assessing dockery-scale appearance and color Doppler flow. Spectral Doppler analysis of the arterial and venous flow were performed in the testes bilaterally. FINDINGS: RIGHT: Right testicle measures 3.7 x 2.0 x 2.5 cm, volume 9.5 mL. No focal testicular parenchymal lesions are visualized. Spectral Doppler analysis of the arterial and venous flow is normal in the right testis. Right epididymis is prominent and diffusely heterogeneous. A 0.6 x 0.5 x 0.5 cm cyst in the right epididymal tail. No right hydrocele or varicocele is seen. Right epididymal Doppler flow is normal. LEFT: Left testicle measures 3.3 x 1.9 x 2.4 cm, volume 7.7 mL. No focal testicular parenchymal lesions are visualized. Spectral Doppler analysis of the arterial and venous flow is normal in the left testis. Left epididymis is prominent and diffusely heterogeneous. No left hydrocele or varicocele is seen. Left epididymal Doppler flow is normal. IMPRESSION: 1. Bilateral epididymides are diffusely heterogeneous and prominent. 2. A 0.6 cm cyst in the right epididymal tail. Assessment & Plan Assessment & Plan Orders: Orders AMB Urinalysis Automated Today Z13.9 - Encounter for screening, unspecified Coding
== END 2024-11-18 10:43 | disposition home or self-care (01) ==
PROVIDERS: PCP Nurse Practitioner Family; Visit Provider Urology
DX: Z13.9 Encounter for screening, unspecified (principal)

== ENCOUNTER → 2024-11-18 09:34 | Outpatient (BNVA) | payer OTHER, SELFPAY | PROVIDERS: PCP Nurse Practitioner Family; Visit Provider Urology | DX: N50.812 Left testicular pain (principal); N45.1 Epididymitis | CPT/HCPCS: 81003 ==

== ENCOUNTER 2025-04-07 16:04 | Outpatient (REF) | payer OTHER, SELFPAY ==
--- NOTE | ~2025-04-07 | US_ITS ---
EXAMINATION: US SCROTUM CLINICAL INFORMATION: Testicular pain.. COMPARISON: None available. TECHNIQUE: A sonogram of the scrotum was performed assessing dockery-scale appearance and color Doppler flow. Spectral Doppler analysis of the arterial and venous flow were performed in the testes bilaterally. FINDINGS: RIGHT: Right testicle measures 2.5 x 3.7 x 1.63 cm, volume 8.09 mL. No focal testicular parenchymal lesions are visualized. Spectral Doppler analysis of the arterial and venous flow is normal in the right testis. Right epididymal head is slightly larger in size compared to left likely due to head cyst. Small epididymal head cyst is seen measuring 0.665 x 0.606 x 0.690 cm. Small cysts are seen along the body and the tail. Cyst in the tail measuring 0.53 x 0.4 x 0.5 cm. No right hydrocele or varicocele is seen. Right epididymal Doppler flow is slightly increased. LEFT: Left testicle measures 2.34 x 3.59 x 1.44 cm, volume 6.33 mL. No focal testicular parenchymal lesions are visualized. Spectral Doppler analysis of the arterial and venous flow is normal in the left testis. Left epididymal head is normal in size. There is a complex left epididymal head cyst measuring 0.4 x 0.3 x 0.3 cm. No left hydrocele or varicocele is seen. Left epididymal Doppler flow is normal US/US scrotum IMPRESSION: Slight increase in the right testicle vascular flow. Bilateral epididymal head cysts. Left epididymal head cyst appears slightly complex. Electronically signed by: Allan Nieto MD 04/07/2025 04:57 PM EDT
== END 2025-04-07 16:05 | disposition home or self-care (01) ==
LOC: HO.US 16:04
PROVIDERS: PCP Nurse Practitioner Family; Visit Provider Urology
DX: N50.819 Testicular pain, unspecified (principal); N50.89 Other specified disorders of the male genital organs
CPT/HCPCS: 76870

== ENCOUNTER → 2025-04-07 16:06 | Outpatient (BNV) | payer OTHER, SELFPAY | PROVIDERS: PCP Nurse Practitioner Family; Visit Provider Radiology Diagnostic Radiology | DX: N50.3 Cyst of epididymis (principal) | CPT/HCPCS: 76870; 93976 ==

== ENCOUNTER 2025-10-25 09:38 | Outpatient (REF) | payer OTHER, SELFPAY ==
[2025-10-25 13:47] LABS: Appearance Urine Turbid; Glucose Urine UA Negative (Negative); PH 5.5 (5.0-9.0); Specific Gravity - Urine 1.020 (1.005-1.025)
[2025-10-25 13:51] LABS: MANUAL DIFF FLAG NO
[2025-10-25 13:59] LABS: Hematocrit 41.0 % (42.0-52.0); Hemoglobin 13.0 g/dl (14.0-18.0); Imm Gran Abs Auto 0.04 X10*3/uL (0.00-0.03); Imm Gran Pct Auto 0.7 % (0.0-0.4); Lymphocytes Absolute Auto 1.5 X10*3/uL (1.2-4.9); Mean Corpuscular HGB Conc 31.7 g/dl (31.0-36.0); Mean Corpuscular Hemoglobin 26.2 pg (27.0-33.0); Mean Corpuscular Volume 82.5 fL (80.0-98.0); NRBC Abs Auto 0.000 X10*3/uL (0.0-0.012); NRBC Pct Auto 0.0 /100WBC (0.0-0.2); Platelet Count 202 X10*3/uL (160-400); Red Blood Count 4.97 X10*6/uL (4.60-5.80); White Blood Count 5.4 X10*3/uL (4.8-10.8)
[2025-10-25 14:14] LABS: Alanine Aminotransferase 21 U/L (0-40); Albumin Level 4.5 g/dL (3.5-5.0); Alkaline Phosphatase 63 U/L (39-117); Anion Gap 12 (12-20); Aspartate Amino Transferase 21 U/L (5-37); Blood Urea Nitrogen 16 mg/dL (9-16); Calcium 9.3 mg/dL (8.4-10.2); Carbon Dioxide 28 mmol/L (22-29); Chloride 107 mmol/L (96-108); Cholesterol 205 mg/dL (<200); Estimated Glomerular Filt Rate > 60; HDL Cholesterol 58 mg/dL (>40); Potassium 3.8 mmol/L (3.3-5.1); Sodium 143 mmol/L (135-145); Total Protein 7.4 g/dL (6.5-8.0); Triglycerides 77 mg/dL (<150)
== END 2025-10-25 09:39 | disposition home or self-care (01) ==
LOC: HO.HMGCLDS 09:38
PROVIDERS: PCP Nurse Practitioner Family; Visit Provider Nurse Practitioner Family
DX: Z00.00 Encounter for general adult medical examination without abnormal findings (principal); Z13.29 Encounter for screening for other suspected endocrine disorder; Z13.0 Encounter for screening for diseases of the blood and blood-forming organs and certain disorders involving the immune mechanism; Z13.6 Encounter for screening for cardiovascular disorders
CPT/HCPCS: 36415; 80053; 80061; 81003; 84443; 85025

== ENCOUNTER 2025-10-27 10:39 | Outpatient (AMB) | payer OTHER, SELFPAY ==
[2025-10-27 10:54] VITALS: BP 112/68; PULSE 77; RESP 16; O2SAT 97; BMI 19.6
--- NOTE | 2025-10-27 10:54 | MHC.PC.OV ---
Vital Signs 10/27/25 10:54 Height 5 ft 1 in Weight 104 lb BMI 19.6 BP 112/68 Blood Pressure Location Lt brachial Position Sitting Respiration 16 Pulse 77 Pulse Source Pulse Oximeter Pulse Oximetry (%) 97 Oxygen Delivery Method Room Air Intake Visit Reasons: Annual PE Vocational Nurse Required: No Accompanied by: Self / Same As Patient Allergies No Known Allergies Allergy (Verified 10/27/25 10:59) Tobacco use date assessed: 10/27/25 Dental Screening Dental Screen Date: 10/27/25 Did you have a dental visit in the last 12 months?: Yes Did you have a dental problem in the last 6 months where you did not have access to dental care?: No Was dental information given to patient?: Patient has dentist HPI Annual PE HPI Details History of Present Illness The patient is a 40 year old male presenting for a physical exam. He has a history of slight anemia, which was also noted on his recent labs. Past workup included a negative hemoglobin electrophoresis, and his hemoglobin levels had normalized at one point. The patient reports symptoms of premature ejaculation. He also has sinus issues. Regarding his gastrointestinal history, he was constipated approximately six times throughout the last year with some associated blood, but this has resolved with dietary adjustments and he reports feeling much better. He denies any current chest pain, shortness of breath, abdominal pain, constipation, or diarrhea. Psychiatrically, the patient denies any suicidal or homicidal ideation. Health Maintenance - The patient presented for a physical examination. - Anemia analysis will be pursued, including repeat testing and a FIT test to screen for occult blood. Social History - Family Status: The patient does not have children. Review of Systems - HEENT: Reports sinus issues. - Cardiovascular: Denies chest pain. - Respiratory: Denies shortness of breath. - Gastrointestinal: Denies abdominal pain, current constipation, or diarrhea. Reports a history of approximately 6 episodes of constipation with some blood in the stool over the past year, which has since resolved with diet changes. - Genitourinary: Reports premature ejaculation. - Psychiatric: Denies suicidal or homicidal ideation. Physical Exam General: Cooperative, healthy appearing, comfortable, no acute distress and well developed. Very skinny stature. Orientation: Patient oriented x3 Limitations: No limitations Head: Normal to inspection Ears: Hearing grossly normal bilaterally Nose: Normal external nose present Face and sinus: Normal facial exam. Some sinus issues present. Eyes: Appearance normal, both eyes and all related structures Neck: Normal visual inspection and Yes full ROM Respiratory: Normal respiratory effort and able to speak in complete sentences. Clear to auscultation bilaterally Cardiovascular: Regular rate and rhythm. Normal S1 and S2 GI: Normal to inspection. Soft to palpation and nontender : Testicles without masses/lesions and no hernias appreciated. Skin: No rashes or lesions noted Neuro: Patient oriented x3 Extremities: Normal to inspection Results - Labs: Recent labs show a slight anemia. - Tests: A previous hemoglobin electrophoresis was negative. Plan Patient was informed and verbally consented to the use of an ambient scribe for clinic note documentation during this visit. 1. Anemia The patient has a slight anemia noted on recent lab work. Past testing included a negative hemoglobin electrophoresis and his hemoglobin has been normal in the past. Further anemia analysis will be conducted by repeating some of the prior testing and ordering a FIT test to evaluate for occult blood, given the history of constipation with blood. 2. Premature Ejaculation The patient reports symptoms of premature ejaculation. He will be started on sertraline 25 mg daily. 3. Sinusitis The patient reports having sinus issues. He will be started on cetirizine, up to 20 mg daily, for at least two weeks to assess for improvement. 4. Constipation The patient has a history of constipation, occurring about six times a year with some blood, which has improved with dietary changes. The condition is currently resolved and will be monitored. Discussion Notes I have discussed the findings of a slight anemia with the patient. We will proceed with a further workup, which includes repeating some lab tests and performing a FIT test to check for any gastrointestinal bleeding. I have also addressed his concerns about premature ejaculation and will start him on a trial of a low-dose SSRI, sertraline 25 mg daily. For his sinus issues, I recommended starting cetirizine up to 20 mg daily for at least two weeks to see if his symptoms improve. Patient Instructions - Take sertraline 25 mg by mouth once daily to help with premature ejaculation. - Take cetirizine up to 20 mg by mouth once daily for at least 2 weeks for your sinus issues. - Please complete the lab work and the stool test (FIT test) as ordered to investigate your anemia. - Continue with your dietary adjustments as they have helped improve your past constipation. [facility] Surgical History No pertinent past surgical history Family History Paternal Uncle No problems noted. Maternal Uncle Substance use disorder Social History Housing: House Patient Tobacco Use Status: Never used Tobacco e-Cigarette/Vaping Use: Never Used Second Hand Smoke Exposure: No service: No Current occupational status: employed Current occupation: [employer] Current occupational exposures/hazards: Yes Cognitive needs: No Hearing needs: No Vision needs: No Questionnaire PHQ-9 Over the last 2 weeks, how often have you been bothered by any of the following problems? 1. Little interest or pleasure in doing things: not at all 2. Feeling down, depressed, or hopeless: several days 3. Trouble falling or staying asleep, or sleeping too much: several days 4. Feeling tired or having little energy: several days 5. Poor appetite or overeating: not at all 6. Feeling bad about yourself - or that you are a failure or have let yourself or your family down: not at all 7. Trouble concentrating on things, such as reading the newspaper or watching television: several days 8. Moving or speaking so slowly that other people could have noticed. Or the opposite - being so fidgety or restless that you have been moving around a lot more than usual: not at all 9. Thoughts that you would be better off or of hurting yourself in some way: not at all Total score: 4 Depression Screening Interpretation: Negative Depression Screening Done: Yes 56380 - PHQ-9 Billing: Yes Source: Developed by Drs. Piotr Gandhi, Faviola Newman, Yann Salvador and colleagues, with an educational gregory from [employer]. Thrive Questionnaire Date Thrive assessed: 09/09/24 I am a: Patient What is your living situation today?: I have a steady place to live Within the past 12 months, did the food you bought not last and you didn't have the money to get more?: Never true Within the past 12 months, did you worry whether your food would run out before you got money to buy more?: Never true Do you have trouble paying for medicines?: No Do you have trouble getting transportation to medical appointments?: Yes Do you have trouble paying your heating and electricity bill?: No Do you have trouble taking care of your child, family member or friend?: No Do you have trouble with day-to-day activities such as bathing, preparing meals, shopping, managing finances, etc.?: No Are you currently unemployed and looking for a job?: No Are you interested in more education?: No Please select the resources that you would like help with: None Currently or been in a relationship where the following occur: No concerns reported THRIVE Score: 1 AUDIT C Alcohol Use Questionnaire (AUDIT-C) 1. How often do you have a drink containing alcohol?: Monthly or less 2. How many drinks containing alcohol do you have on a typical day when you are drinking?: 1 or 2 3. How often do you have six or more drinks on one occasion?: Never Total Score: 1 RUBY-7 AMB Questionnaire RUBY-7 Date RUBY - 7 assessed: 10/27/25 Feeling nervous, anxious, or on edge: 1 = Several days Not being able to stop or control worryin = Several days Worrying too much about different things: 1 = Several days Trouble relaxin = Several days Being so restless that it is hard to sit still: 1 = Several days Becoming easily annoyed or irritable: 2 = More than half the days Feeling afraid as if something awful might happen: 0 = Not at all Total RUBY-7 score (0-4 normal; 5-9 mild; 10-14 moderate; 15-21 severe): 7 Source: Developed by Drs. Piotr Gandhi, Faviola Newman, Yann Salvador and colleagues, with an educational gregory from [employer]. RUBY-7 Assessment Billing RUBY-7 Assessment Tool: RUBY-7 Assessment 54297 Physical exam (Primary Care) Vital Signs: Last Vital Signs Pulse 77 10/27/25 10:54 Resp 16 10/27/25 10:54 BP 112/68 10/27/25 10:54 Pulse Ox 97 10/27/25 10:54 Oxygen Delivery Method Room Air 10/27/25 10:54 BMI result Body Mass Index 19.6 Tobacco/Smoking Status: Tobacco use Status Tobacco use date assessed 10/27/25 10/27/25 11:00 Patient Tobacco Use Status Never used Tobacco 10/27/25 10:55 e-Cigarette/Vaping Use Never Used 10/27/25 10:55 PHQ-9: PHQ-9 Score PHQ-9: Total score 4 10/27/25 11:00 Depression Screening Interpretation: Negative Thrive Assessment: Date of Thrive Assessment Date Thrive assessed 09/09/24 10/27/25 10:55 Currently or been in a relationship where the following occur: No concerns reported Coding Level of Care Code Est Pt Level 3 (68261) Est Pt Prev Care 40-64y(92859) Diagnoses Anemia D64.9 Encounter for routine adult physical exam with abnormal findings Z00.01 Additional Codes RUBY-7 Assessment Billing - RUBY-7 Assessment Tool: RUBY-7 Assessment 31943 ([id number]) PHQ-9 - 15119 - PHQ-9 Billing: Yes ([id number]) Assessment & Plan Assessment & Plan (1) Anemia: Code(s): D64.9 - Anemia, unspecified Category: Medical (2) Encounter for routine adult physical exam with abnormal findings: Code(s): Z00.01 - Encounter for general adult medical examination with abnormal findings Category: Medical Plan . Orders: Orders Ferritin Today D64.9 - Anemia, unspecified IRON PROFILE Today D64.9 - Anemia, unspecified Lactate Dehydrogenase Today D64.9 - Anemia, unspecified FITS Today D64.9 - Anemia, unspecified Protein Electrophoresis, Serum Today D64.9 - Anemia, unspecified Vitamin B12 and Folate Today D64.9 - Anemia, unspecified Reticulocyte Count Today D64.9 - Anemia, unspecified Complete Blood Count Auto Diff Today D64.9 - Anemia, unspecified Hemoglobin Electrophoresis Today D64.9 - Anemia, unspecified Medications: New sertraline 25 mg PO DAILY 30 tabs 3RF
== END 2025-10-27 11:56 | disposition home or self-care (01) ==
LOC: HO.HMCC 10:40
PROVIDERS: PCP Nurse Practitioner Family; Visit Provider Nurse Practitioner Family
DX: Z00.01 Encounter for general adult medical examination with abnormal findings (principal); D64.9 Anemia, unspecified

== ENCOUNTER → 2025-10-27 10:39 | Outpatient (BNVA) | payer OTHER, SELFPAY | PROVIDERS: PCP Nurse Practitioner Family; Visit Provider Nurse Practitioner Family | DX: Z00.01 Encounter for general adult medical examination with abnormal findings (principal); D64.9 Anemia, unspecified | CPT/HCPCS: 82274; 96127 ==